=== PATIENT | female | born 2000 | race African-American/Black ===

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

== ENCOUNTER 2024-05-06 17:02 | Emergency (ER) | payer MEDICARE, MEDICAID, SELFPAY ==
[2024-05-06 17:03] VITALS: BP 117/92; PULSE 79; RESP 15; TEMP 35.7; O2SAT 98; BMI 24.3
--- NOTE | 2024-05-06 17:59 | ED.RN ---
PT. HAVING SEIZURE IN ROOM, LEANING TOWARD LEFT SIDE WITH ARMS OUTSTRETCHED AND STIFF. PT. HYPERVENTILATING AND BREATHES AFTER A STERNAL RUB.
[2024-05-06 18:00] VITALS: BP 131/1; PULSE 81; RESP 13; O2SAT 97
[2024-05-06] MEDS: LORazepam 2 MG/ML Syringe 1 MG IV ×3 (18:03→19:40)
--- NOTE | 2024-05-06 18:03 | EX.ED.DYSGE1 ---
HPI History of Present Illness Chief Complaint: Seizure Informant: patient and other ([facility] staff) Narrative Narrative: 23-year-old female presenting to the emergency room via EMS with concern for possible seizure. Patient has a diagnosis of functional neurologic disorder and psychogenic seizures brought on by PTSD. She currently resides with family in [place] and is currently under mental stress due to being moved to a [place] [facility] here in [place]. She reportedly has had episodes of myoclonic jerks and has been seen at outside hospital before. She states she typically will go to [facility]. She states that they tried Haldol in the past which resulted in dystonia. She states that sometimes she will receive the medication which puts her to sleep and she wakes up at home. In between episodes of tics and jerks she is conversant and a fairly good historian. She currently denies any pain or injuries. [facility] Medical History (Updated 05/06/24 @ 18:[address] Clinton Salmeron DO) Functional neurological symptom disorder (conversion disorder), with abnormal movement Seasonal allergies Anemia hay fever unusual tiredness History of loss of consciousness Home Medications ?Medication ?Instructions ?Recorded ?Last Taken ?Type dextroamphetamine-amphetamine ER 30 mg PO QAM 02/21/19 Unknown History 30 mg 24hr capsule,extend release (Adderall XR) ferrous sulfate 325 mg (65 mg 325 mg PO DAILY 02/21/19 Unknown History iron) tablet sertraline 25 mg tablet (Zoloft) 100 mg PO QDAY 02/21/19 Unknown History ALLERGY SHOTS IM 09/07/19 Unknown History fluticasone propionate 50 intranasal #16 grams 09/07/19 Unknown History mcg/actuation nasal spray,suspension montelukast 10 mg tablet PO #30 tabs 09/07/19 Unknown History Allergy/AdvReac Type Severity Reaction Status Date / Time peanut Allergy Unknown Verified 09/07/19 11:12 sunflower seed Allergy Unknown Verified 09/07/19 11:12 Social History Smoking Status: Current every day smoker tobacco type: e-cigarettes ROS ROS ED Constitutional Constitutional ED: Denies chills or weight loss Eyes Eyes: Denies change in vision or diplopia ENT ENT ED: Denies ear pain, rhinorrhea or sore throat Cardiovascular Cardiovascular: Denies chest pain, orthopnea, palpitations or racing heartbeat Respiratory/Chest Respiratory/Chest: Denies cough, dyspnea or orthopnea Gastrointestinal Gastrointestinal: Denies abdominal pain, diarrhea, nausea or vomiting Genitourinary Genitourinary ED: Denies dysuria, hematuria or urinary frequency Musculoskeletal Musculoskeletal: Denies arthralgias or myalgias Integumentary Denies abscess or rash Neurologic Neurologic: Denies headache(s) or weakness Psychiatric Psychiatric: Reports anxiety and depression; Denies suicidal ideation or suicidal thoughts Endocrine Endocrinology: Denies polydipsia, polyphagia or polyuria Allergic/Immunologic Allergic/Immunologic ED: Denies mouth swelling, tongue swelling or urticaria EXAM Physical Exam Const Vital Signs: 05/06/24 17:03 05/06/24 18:00 05/06/24 18:33 Temperature 96.2 F L Temperature Source Temporal Pulse Rate 79 81 100 Respiratory Rate 15 13 33 H Blood Pressure 117/92 H 131/1 H 127/75 H Blood Pressure Mean 100 44 92 Pulse Ox 98 97 97 Oxygen Delivery Method Room Air Room Air 05/06/24 19:45 Temperature 97.6 F L Temperature Source Pulse Rate 99 Respiratory Rate 18 Blood Pressure 121/82 H Blood Pressure Mean 95 Pulse Ox 100 Oxygen Delivery Method Positive well nourished and well developed General Appearance ED: well developed and NAD HEENT Reports normocephalic, head/scalp atraumatic, TM's clear and moist mucous membranes Tympanic Membrane ED: Yes TM's clear Eyes PERRL and EOMs intact bilaterally Neck no lymphadenopathy, supple and no JVD Resp normal respiratory effort and clear to auscultation bilaterally Cardio regular rate, regular rhythm and no murmurs GI normal to inspection, nondistended, normoactive bowel sounds and non-tender Palpation: soft Back/Spine no CVA tenderness and normal ROM Extremity normal to inspection General Extremety ED: Negative for edema General Extremity: Negative for edema Neuro oriented x3 and CN's II-XII intact bilaterally Neuro Narrative: Patient has intermittent episodes of upper extremity myoclonic jerks and facial twitching. In between episodes she has repetitive speech movement at times. She does not appear to have any postictal symptoms. Sensorium / Orientation: alert Motor Exam: strength 5/5 throughout Psych mental status grossly normal Mood & Affect: Negative for depressed or tearful Skin no rashes or lesions noted and no wounds MDM MDM MDM Narrative Medical decision making narrative: Differential diagnosis includes partial complex seizures epilepsy psychogenic nonepileptic seizure trauma encephalitis meningitis. Patient received a dose of Ativan and was observed. Mom came to the emergency department. She notes the patient is at her baseline. That this myoclonic movements is normal for her and she seems at her baseline. She is comfortable taking her home. Mom understands return instructions History & Record Review Discussion w/independent historian: EMS personnel, Patient and Other Discharge Plan Triage Chief Complaint: Seizure ED Provider: Clinton Salmeron Dx/Rx/DC Orders Clinical Impression: Functional neurological symptom disorder (conversion disorder), with abnormal movement Instructions: ED Conversion Reaction Prescriptions: No Action sertraline [Zoloft] 25 mg tablet 100 mg PO QDAY ferrous sulfate 325 mg (65 mg iron) tablet 325 mg PO DAILY dextroamphetamine-amphetamine [Adderall XR] 30 mg capsule,extended release 24hr 30 mg PO QAM montelukast 10 mg tablet PO Qty: 30 Patient Comments: TAKE 1 TABLET BY MOUTH EVERY DAY fluticasone propionate 50 mcg/actuation spray,suspension INTRANASAL Qty: 16 Patient Comments: SPRAY 2 SPRAYS IN EACH NOSTRIL DAILY ALLERGY SHOTS IM Primary Care Provider: Angela Eason NP Referrals: Cynthia Stafford DO [Non-Staff] - 1-2 Days if not improving Print Language: Slovak Disposition Disposition: Home, Self Care Discharge Date/Time: 05/06/24 19:55
--- NOTE | 2024-05-06 18:20 | ED.RN ---
Dr. Salmeron notified of pt. having another episode of seizure-like activity/myoclonic jerks
[2024-05-06 18:33] VITALS: BP 127/75; PULSE 100; RESP 33; O2SAT 97
--- NOTE | 2024-05-06 18:45 | ED.RN ---
Dr. Salmeron notified of mother at bedside.
[2024-05-06 19:45] VITALS: BP 121/82; PULSE 99; RESP 18; TEMP 36.4; O2SAT 100
--- NOTE | 2024-05-06 19:46 | ED.RN ---
RN to d/c pt, started having myoclonic jerking again. Medicated with PRN ativan, Dr. Salmeron aware, pt will be d/c after being observed for 15 minutes.
== END 2024-05-06 19:55 | disposition home or self-care (01) ==
PROVIDERS: Emergency Provider Emergency Medicine; PCP Registered Nurse; Visit Provider Emergency Medicine
DX: F44.4 Conversion disorder with motor symptom or deficit (principal); F17.290 Nicotine dependence, other tobacco product, uncomplicated; F43.10 Post-traumatic stress disorder, unspecified; F32.A Depression, unspecified; F41.9 Anxiety disorder, unspecified; Z79.899 Other long term (current) drug therapy
CPT/HCPCS: 96374; 99282; A4216

== ENCOUNTER → 2025-01-09 | Outpatient (CLI) | payer MEDICARE, MEDICAID, SELFPAY ==
[2025-01-09 09:11] LABS: Hematocrit 38.4 % (37-47); Hemoglobin 12.6 g/dL (12.0-15.0); Mean Corp Hgb Conc 32.8 g/dL (32-36); Mean Corpuscular Hgb 26.9 pg (27.0-32.0); Mean Corpuscular Volume 81.9 fL (81-99); Mean Platelet Vol. 9.1 fl (6.2-12.0); Platelet Count 261 K/mm3 (150-450); RBC Distribution Width CV 13.7 % (11.6-14.6); RBC Distribution Width SD 40.6 fl (35.1-43.9); Red Blood Count 4.69 M/mm3 (4.2-5.4); White Blood Count 6.2 K/mm3 (4.4-11.0)
[2025-01-09 10:14] LABS: ALB/GLOB Ratio 1.3 RATIO (0.9-2.4); AST(SGOT) 35 U/L (<=31); Alanine Aminotransfer ALT/SGPT 23 U/L (<=34); Albumin, Serum 4.1 g/dL (3.5-5.0); Alkaline Phosphatase 58 U/L (35-104); Anion Gap 13 (5-15); BUN 6 mg/dL (4-19); BUN/Creat Ratio 10.1 RATIO (10-20); Carbon Dioxide 22.2 mmol/L (22.0-29.0); Chloride 107 mmol/L (96-108); Creatinine, Serum 0.63 mg/dL (0.70-1.20); EST Glomerular Filtration Rate 128 (>60); Globulin 3.3 g/dL (2.2-4.2); Glucose 87 mg/dL (70-99); Potassium 3.9 mmol/L (3.3-5.1); Protein, Total 7.3 g/dL (5.9-8.4); Sodium Level 142 mmol/L (133-145); Total Bilirubin 0.27 mg/dL (0.00-1.30)
== END | disposition home or self-care (01) ==
LOC: LABSPEC 08:54
PROVIDERS: PCP Registered Nurse; Referring Provider Internal Medicine; Visit Provider Internal Medicine
DX: F31.9 Bipolar disorder, unspecified (principal)
CPT/HCPCS: 80053; 85027